=== PATIENT | male | born 2000 | race Caucasian/White ===

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

== ENCOUNTER → 2021-04-27 11:13 | Outpatient (BNVA) | payer BC, MEDICAID, SELFPAY | PROVIDERS: Visit Provider Nurse Practitioner Family | DX: E10.9 Type 1 diabetes mellitus without complications (principal); E55.9 Vitamin D deficiency, unspecified; E06.3 Autoimmune thyroiditis; J34.2 Deviated nasal septum | CPT/HCPCS: 80053; 80061; 82306; 83036; 84439; 84443; 85025 ==

== ENCOUNTER → 2021-07-28 11:17 | Outpatient (BNVA) | payer BC, MEDICAID, SELFPAY | PROVIDERS: Visit Provider Otolaryngology | DX: J34.2 Deviated nasal septum (principal); J34.3 Hypertrophy of nasal turbinates; Z20.822 Contact with and (suspected) exposure to COVID-19 | CPT/HCPCS: 87635 ==

== ENCOUNTER 2021-08-03 06:45 | Day surgery (SDC) | payer BC, MEDICAID, SELFPAY ==
[2021-08-02 12:49] VITALS: BMI 27.5
[2021-08-03] VITALS (14 sets, daily range): BP systolic 107–158; BP diastolic 71–104; PULSE 90–106; RESP 14–22; TEMP 36.4–37.3; O2SAT 91–100
[2021-08-03 07:24] LABS: Glucose Point of Care 212 mg/dL (70-110)
[2021-08-03] MEDS: sodium chloride 0.9% 1,000 ML 30 ML IV (07:36)
--- NOTE | 2021-08-03 07:51 | W.PM.OPSUD ---
Surgery/Procedure H&P Update DATE OF PROCEDURE: August 03, 2021 DATE H&P PERFORMED: 07/22/21 H&P UPDATE INFORMATION: I have reviewed H&P completed within last 30 days, I have examined patient prior to procedure and No changes to prior documentation PREOP DIAGNOSIS: Deviated nasal septum and turbinate hypertrophy PLANNED PROCEDURE: Operation Date: 08/03/21 08:10 Proposed Procedures p Septoplasty and turbinate reduction [id number] J34.2 J34.3(Not Applicable) - Caleb Love MD
[2021-08-03] MEDS: midazolam 1 mg/mL INJ 2 mL 2 MG IVP (08:06)
--- NOTE | 2021-08-03 08:09 | ANES.PREANE2 ---
Pre-Anesthetic Assessment Pre-Anesthetic Assessment: Height/Weight: Height 1.83 m Weight 92.079 kg Temp Pulse Resp BP Pulse Ox 99.2 F 99 22 H 132/71 100 08/03/21 07:10 08/03/21 07:10 08/03/21 07:10 08/03/21 07:10 08/03/21 07:10 Preop Diagnosis: Deviated nasal septum and turbinate hypertrophy Proposed Procedure: Operation Date: 08/03/21 08:10 Proposed Procedures p Septoplasty and turbinate reduction [id number] J34.2 J34.3(Not Applicable) - Caleb Love MD Was Beta Karen taken within 24 hours: N/A Was Clonidine taken within 24 hours: N/A Last intake: Intake Last Liquid Date 08/02/21 Last Liquid Time 20:00 Last Solid Date 08/02/21 Last Solid Time 20:00 Social: Social History: No alcohol and No tobacco Exam: Pre-Anes Outpt Exam: alert, oriented x 3, clear to auscultation bilaterally and regular rate & rhythm Airway: Submandibular: WNL Cervical ROM: WNL MP: 2 Dentition: Full Metabolic: Metabolic: DM and Thyroid Anesthetic Plan: ASA status: 2 Anesthesia: General Risk of > 500 ml blood loss (7ml/kg in children): No Meds/Allergies Current Medications: Current Medications Generic Name Dose Route Start Last Admin Trade Name Freq PRN Reason Stop Dose Admin Sodium Chloride 1,000 mls @ 30 ml s/hr 08/03/21 07:00 08/03/21 07:36 Sodium Chloride 0.9% IV 08/04/21 06:59 30 mls/hr .Q24H ASHLEY Administration Midazolam HCl 2 mg 08/03/21 06:51 08/03/21 08:06 Midazolam 1 Mg/M l Inj 2 Ml IVP 2 mg Q5M PRN Administration Preop Anxiety PFSH Anesthesia PFSH: Medical History Anxiety and depression Karla's thyroiditis Lumbar scoliosis Vitamin D deficiency Surgical History Hx of colonoscopy Hx of endoscopy Family History Denies family history of Anesthesia complication Bleeding disorder Social History Second hand smoke exposure: Yes (at work) Alcohol intake: never Caregiver/support person: Yes (mother) Lives independently: No Household members: family Marital status: Single Current occupational status: employed and student History of recent travel: No Current gender identity: Male Special meseret needs: No Data Anesthesia Other Labs: Laboratory Results - last 48 hr 08/03/21 07:20 POC Glucose 212 H Cardiac Studies: No Data to Display
[2021-08-03] MEDS: oxymetazoline 0.05% Nasal Spray 15 mL 2 SPRAY NOSTRIL-R (08:39)
[2021-08-03] MEDS: neomycin-poly-bacitracin oint 28 gm 1 APPLIC TOPICAL (09:12)
--- NOTE | 2021-08-03 09:23 | PM.OP ---
Operative Report Date of procedure: August 03, 2021 Pre-op Diagnosis: Deviated nasal septum and turbinate hypertrophy Post-op diagnosis: same Post-op Findings: Severely deviated nasal septum containing both maxillary crest and septal bone and septal cartilage to the left side. Turbinates 3+ and reduced to 2+ in size. Procedure Done: Septoplasty and submucous resection of bilateral inferior turbinates. Implants: 2 septal splints and 2 Telfa packs intranasally Pathology: none sent Surgeon: Caleb Love Anesthesia: General and Local Estimated blood loss (mL): 25 Complications: No complications encountered Findings: Severe deviation of septum to the left side impinging on lateral nasal wall and inferior turbinate and middle meatus. Compensatory turbinate hypertrophy. Condition: stable Disposition: PACU Brief History: 21-year-old male patient has a severely deviated nasal septum to the left side with compensatory turbinate hypertrophy which has been refractory to time and conservative medical therapy. He is therefore being brought to the operating room to undergo septoplasty and turbinate reduction. The procedure its risks and complications have been explained to the patient and his mother in the office setting. These risks included bleeding infection numbness scarring swelling bruising septal hematoma abscess or perforation change in sense of smell nasal dryness recurrent problems need for additional treatment and more serious risk such as heart attack or stroke or not surviving the surgery. With these things understood informed consent was granted and witnessed. Procedure: Description of procedure: The patient was placed on the operating table in the supine position. Adequate general endotracheal tube anesthesia was obtained. He was given Ancef IV for prophylaxis. He was repositioned into a semirecumbent position. Eyes were taped shut. A timeout was accomplished identifying the patient date of plan procedure allergies fire risk and medications given. With all in agreement the procedure continued. The patient's nose was packed with cottonoids soaked in 12-hour Afrin. After several minutes the nasal hairs were trimmed with scissors and the packing was removed first from the left side. At that point infiltration with local utilizing 2% Xylocaine with 1-100,000 epinephrine was injected into the septum and inferior turbinate. Then the Afrin packs were reapplied to the left side of the nose and a similar procedure was done on the right side. A total of 13.6 mL of 2% Xylocaine with 1-100,000 epinephrine was utilized. The patient was then prepped and draped in usual fashion. The Afrin packs were removed from the nose. The turbinates were outfractured with a [place] elevator. A left hemitransfixion incision was created with a 15 blade carrying it down to the level of septal cartilage. Then a Taina elevator was used to create a submucosal pocket anteriorly inferiorly superiorly and posteriorly. The quadrangular cartilage was off the crest to the left side. The cartilage deviation then extended to a bony deviation. The half round knife was used to excise the inferior most aspect that was difficult reflected superiorly to the left. This was done over the entire length of the quadrangular cartilage inferiorly. Approximately 3 mm of tissue was removed. Once that cartilage was removed the quadrangular cartilage was disarticulated from the perpendicular plate of the ethmoid and vomer. The posterior tunnel was then created on the right side. Then the large bony spur to the left was resected in a piecemeal fashion with Ophelia forceps. The maxillary crest that was severely widened and fractured off to the left was trimmed and then fractured back into a straight midline position with a [place] elevator. At this point the septum rested in a good straight midline position with no further deflection. The turbinates were then evaluated. The inferior turbinates were cauterized along their medial and lateral aspect removing about one third of each inferior turbinate. The incision was done with the needle tip Bovie and then the distal aspect of the turbinate along with more proximal turbinate bone was resected in a piecemeal fashion with Ophelia forceps. With this accomplished a [place] elevator was now able to be passed to the nasopharynx without obstruction. A drainage hole was created on the left side inferiorly to prevent hematoma formation. The left hemitransfixion incision was closed loosely with interrupted 4-0 chromic suture. 2 septal splints were coated with Neosporin and 1 was applied each side of the septum. These were then sutured in a through and through fashion with 3-0 Prolene. After checking for any active bleeding 2 Telfa packs were cut to size coated with Neosporin and 1 was applied each side of the nose extending from the nostril to the nasopharynx. This was done bilaterally and symmetrically. The nose was then cleansed. The mouth was suctioned clean. There was no sign of active bleeding. The drapes were removed and the patient was returned to the anesthesiologist for wake-up and extubation. The patient tolerated the procedure well had an estimated blood loss of 25 mL and arrived in recovery in stable condition.
--- NOTE | 2021-08-03 09:46 | PC.NURSE ---
Blood glucose checked at this time- blood sugar: 213.
[2021-08-03 09:51] LABS: Glucose Point of Care 213 mg/dL (70-110)
[2021-08-03] MEDS: fentaNYL 50 mcg/mL INJ 2mL IVP ×2 (09:57→10:03)
[2021-08-03] MEDS: ondansetron 2 mg/ML SDV 2 mL 4 MG IVP (11:06)
[2021-08-03] MEDS: cetylpyridinium Lozenge 1 EACH MUCOUS MEM (11:13)
--- NOTE | 2021-08-03 15:47 | ANE.PACU2 ---
Inpatient post-anesthesia follow up: Airway intact: Yes Vital signs: Temperature 98.3 F Pulse Rate 90 Respiratory Rate 16 Blood Pressure 158/88 Pulse Oximetry 94 Oxygen Delivery Me thod Room Air Oxygen Flow Rate 8 Fraction of Inspir ed Oxygen Hydration adequate: Yes Nausea and vomiting: No Pain level: 4 Mental status: Baseline
== END 2021-08-03 11:25 | disposition home or self-care (01) ==
PROVIDERS: PCP Nurse Practitioner Family; Visit Provider Otolaryngology
PROC: (CPT 30420; principal; 2021-08-03 08:05)
DX: J34.2 Deviated nasal septum (principal); J34.3 Hypertrophy of nasal turbinates; E11.9 Type 2 diabetes mellitus without complications; F41.9 Anxiety disorder, unspecified; F32.9 Major depressive disorder, single episode, unspecified; Z79.4 Long term (current) use of insulin; E55.9 Vitamin D deficiency, unspecified
CPT/HCPCS: 30140; 30520; 36416; 82962; 96365; 96374; J0690; J1100; J2250; J2405; J2704; J2710; J3010; J3490; J7030

== ENCOUNTER → 2022-01-17 11:12 | Outpatient (BNVA) | payer BC, MEDICAID, SELFPAY | PROVIDERS: PCP Nurse Practitioner Family; Visit Provider Nurse Practitioner Family | DX: E10.9 Type 1 diabetes mellitus without complications (principal); E55.9 Vitamin D deficiency, unspecified; E06.3 Autoimmune thyroiditis; R53.83 Other fatigue | CPT/HCPCS: 80053; 80061; 82043; 82306; 82607; 83036; 83735; 84403; 84439; 84443; 85025; 85651; 86038; 86140; 86200; 86431; 86705; 86706; 86709; 86803; 87340 ==

== ENCOUNTER → 2022-12-22 13:47 | Outpatient (BNVA) | payer BC, MEDICAID, SELFPAY | PROVIDERS: PCP Nurse Practitioner Family; Visit Provider Nurse Practitioner Family | DX: Z00.00 Encounter for general adult medical examination without abnormal findings (principal); R50.9 Fever, unspecified; E06.3 Autoimmune thyroiditis; E10.9 Type 1 diabetes mellitus without complications; E55.9 Vitamin D deficiency, unspecified; J40 Bronchitis, not specified as acute or chronic; Z13.6 Encounter for screening for cardiovascular disorders | CPT/HCPCS: 87400; 87426 ==

== ENCOUNTER → 2022-12-25 09:28 | Outpatient (BNVA) | payer BC, MEDICAID, SELFPAY | PROVIDERS: PCP Nurse Practitioner Family; Visit Provider Nurse Practitioner Family | DX: E06.3 Autoimmune thyroiditis (principal); Z13.6 Encounter for screening for cardiovascular disorders; E10.9 Type 1 diabetes mellitus without complications; E55.9 Vitamin D deficiency, unspecified | CPT/HCPCS: 80053; 80061; 82306; 83036; 84443; 85025 ==

== ENCOUNTER 2023-01-14 18:08 | Emergency (ER) | payer BC, MEDICAID, SELFPAY ==
[2023-01-14 18:18] VITALS: BP 112/77; PULSE 88; RESP 16; TEMP 37.2; O2SAT 100; BMI 23.4
[2023-01-14 19:12] LABS: Basophils % 0.6 %; Eosinophils # 0.3 10^3/uL (0.0-0.8); Eosinophils % 7.1 %; Hematocrit 39.6 % (42.0-52.0); Hemoglobin 13.9 g/dL (11.7-16.6); Lymphocytes # 1.3 10^3/uL (0.8-4.8); Lymphocytes % 27.1 %; Mean Corpuscular HGB Conc 35.1 g/dL (30.0-36.0); Mean Corpuscular Hemoglobin 31.6 pg (28.0-34.0); Mean Platelet Volume 11.9 fL (7.4-10.4); Monocytes # 0.3 10^3/uL (0.2-0.9); Monocytes % 5.6 %; Neutrophils # 2.74 10^3/uL (1.8-7.7); Neutrophils % 59.4 %; Nucleated Red Blood Cells % 0 %; Platelet Count 153 10^3/cmm (130-400); Red Cell Distribution Width 11.9 % (12.1-15.1); White Blood Count 4.6 10^3/uL (4.0-10.0)
[2023-01-14 19:24] VITALS: BP 134/75; PULSE 88; RESP 16; O2SAT 100
[2023-01-14 19:27] VITALS: BP 134/75; PULSE 89; RESP 19; O2SAT 100
[2023-01-14 19:30] LABS: Alanine Aminotransferase 17 U/L (0-41); Albumin Level 4.4 g/dL (3.5-5.2); Alkaline Phosphatase 68 U/L (40-130); Anion Gap 12.4 (5-19); Aspartate Amino Transferase 12 U/L (0-40); Blood Urea Nitrogen 7 mg/dL (6-20); Calcium 8.7 mg/dL (8.5-10.5); Carbon Dioxide 25 mmol/L (22-29); Chloride 102 mmol/L (98-107); Globulin 1.9 g/dL (1.3-4.6); Glomerular Filtration Rate 142.4 mL/min (90-130); Glucose 215 mg/dL (65-115); Lipase 10 U/L (13-60); Osmolality Calculated 286 mOsm/kg (285-295); Potassium 3.4 mmol/L (3.5-5.1); Sodium 136 mmol/L (136-145); Total Bilirubin 0.5 mg/dL (0.15-1.2); Total Protein 6.3 g/dL (6.6-8.7)
[2023-01-14 19:44] LABS: Glucose Point of Care 230 mg/dL (70-110)
--- NOTE | 2023-01-14 19:46 | CTR_ITS ---
PROCEDURE INFORMATION: Exam: CT Head Without Contrast Exam date and time: 01/14/2023 7:53 PM Age: 22 years old Clinical indication: Pain; Other: Disoriented; Headache; Patient HX: Type 1 diabetic TECHNIQUE: Imaging protocol: Computed tomography of the head without contrast. Radiation optimization: All CT scans at this facility use at least one of these dose optimization techniques: automated exposure control; mA and/or kV adjustment per patient size (includes targeted exams where dose is matched to clinical indication); or iterative reconstruction. REPORTING DATA: Count of CT and Cardiac NM exams in prior 12 months: This patient has received 0 known CTs and 0 known cardiac nuclear medicine studies in the 12 months prior to the current study. COMPARISON: No relevant prior studies available. RADIATION DOSE METRICS: Total DLP (mGy-cm): 1112.58 FINDINGS: Brain: There is no evidence of intracranial hemorrhage. No mass effect or midline shift. There is no brain edema. Unremarkable white matter. Cerebral ventricles: The ventricles and sulci are appropriate for the patient's age. Paranasal sinuses: There is opacification of a single left posterior ethmoid air cell. Mastoid air cells: The visualized mastoid air cells are well aerated. Bones/joints: No acute fracture. Soft tissues: Unremarkable. CT/CT head wo con* [id number] IMPRESSION: 1. No acute intracranial findings. 2. Paranasal sinus disease as above.
[2023-01-14 19:56] LABS: Ketone (Acetest) Serum Negative (Negative)
--- NOTE | 2023-01-14 19:56 | ED_ITS ---
HPI - Headache General: Chief Complaint: Headache Stated Complaint: headache Time Seen by Provider: 01/14/23 19:32 Source: patient History of Present Illness: 22-year-old male insulin-dependent diabetic. He was seen in urgent care earlier after 4 to 5 days of headache. He notes that his sugar has been a bit more hard to control the last 5 days. He says that his blood sugar was high prior to getting his headache, and wonders if his blood sugar being high may have caused something to happen in his head. He is nauseated. He has not vomited. He was given IM Toradol at urgent care without improvement. MD elicited complaint: headache Onset (ago): day(s) (3) Associated symptoms: Reports lightheadedness and nausea; Deny chest pain, confusion, cough, fever(s), neck stiffness, short of breath or vomiting Review of Systems Const: Denies: fever(s) Card: Reports: lightheadedness; Denies: chest pain Resp: Denies: dyspnea GI: Reports: nausea; Denies: abdominal pain or vomiting Neuro: Reports: headache(s); Denies: confusion PFSH ED PFSH: Medical History Anxiety and depression Karla's thyroiditis Lumbar scoliosis Vitamin D deficiency Surgical History Hx of colonoscopy Hx of endoscopy Family History Denies family history of Anesthesia complication Bleeding disorder Social History Smoking and tobacco status: never smoked Second hand smoke exposure: Yes (at work) Alcohol intake: never Caregiver/support person: Yes (mother) Lives independently: No Household members: family Marital status: Single Current occupational status: employed and student Current gender identity: Male Special meseret needs: No Physical Exam Const: COMMON NORMALS: no acute distress GENERAL APPEARANCE: cooperative; not ill appearing and not frail appearing HENMT: COMMON NORMALS: normocephalic, atraumatic and Normal external nose present HEAD & SCALP: normocephalic and atraumatic FACE & SINUS: normal facial exam and face symmetric NOSE: Normal external nose present Eye: COMMON NORMALS: Equal, round and reactive pupils present and EOMs intact bilaterally PUPIL: Yes Equal, round and reactive pupils present Neck/C-Spine: GENERAL: Yes trachea midline Chest: CHEST: Yes Symmetrical chest wall rise Resp: COMMON NORMALS: normal respiratory effort, No retractions, No use of accessory muscles and clear to auscultation bilaterally AUSCULTATION: clear to auscultation bilaterally Cardio: COMMON NORMALS: regular rate and regular rhythm RATE: regular rate RHYTHM: regular rhythm GI: COMMON NORMALS: Normal to inspection, nondistended, normoactive bowel sounds present Extremity: COMMON NORMALS: no pedal edema Neuro: PATRICIA COMA SCALE: document GCS findings Patricia coma scale eye opening: Spontaneous [place] coma scale verbal response: Orientated [place] coma scale motor response: Obey commands [place] coma scale total score: 15 SENSORY EXAM: Yes extremities (intact) Psych: COMMON NORMALS: speech normal SPEECH: Yes normal speech Skin: COMMON NORMALS: no rashes or lesions noted GENERAL SKIN EXAM: no rashes or lesions noted Course Vital Signs: Vital signs: Vital Signs Temperature 99.0 F 01/14/23 18:18 Pulse Rate 87 01/14/23 20:35 Respiratory Rate 14 01/14/23 21:47 Blood Pressure 131/80 01/14/23 20:35 Pulse Oximetry 98 01/14/23 21:47 Oxygen Delivery Me thod 01/14/23 20:35 MDM - Headache Medical Decision Making Vital signs are normal. Headache is improved. He is given 2 L bolus. Sugar on CMP testing is 215. His CBC is normal. Potassium is 3.4. Serum ketones are negative. Lipase is normal. Head CT shows some mild para sinus disease. He will be allowed discharge. Lab Data 01/14/23 19:03 01/14/23 19:[address] 01/14/23 19:46 IMPRESSION: 1. No acute intracranial findings. 2. Paranasal sinus disease as above. Laboratory Results WBC 4.6 10^3/uL (4.0-10.0) 01/14/23 19:03 RBC 4.40 10^6/uL (4.1-5.3) 01/14/23 19:03 Hgb 13.9 g/dL (11.7-16.6) 01/14/23 19:03 Hct 39.6 % (42.0-52.0) L 01/14/23 19:03 MCV 90.0 fl (80-94) 01/14/23 19:03 MCH 31.6 pg (28.0-34.0) 01/14/23 19:03 MCHC 35.1 g/dL (30.0-36.0) 01/14/23 19:03 RDW 11.9 % (12.1-15.1) L 01/14/23 19:03 Plt Count 153 10^3/cmm (130-400) 01/14/23 19:03 MPV 11.9 fL (7.4-10.4) H 01/14/23 19:03 Neut % (Auto) 59.4 % 01/14/23 19:03 Lymph % (Auto) 27.1 % 01/14/23 19:03 [place] % (Auto) 5.6 % 01/14/23 19:03 Eos % (Auto) 7.1 % 01/14/23 19:03 Baso % (Auto) 0.6 % 01/14/23 19:03 Neut # (Auto) 2.74 10^3/uL (1.8-7.7) 01/14/23 19:03 Lymph # (Auto) 1.3 10^3/uL (0.8-4.8) 01/14/23 19:03 [place] # (Auto) 0.3 10^3/uL (0.2-0.9) 01/14/23 19:03 Eos # (Auto) 0.3 10^3/uL (0.0-0.8) 01/14/23 19:03 Baso # (Auto) 0.0 10^3/uL (0.0-0.1) 01/14/23 19:03 Nucleated RBC % (auto) 0 % 01/14/23 19:03 Nucleated RBCs # 0.0 /100WBC 01/14/23 19:03 Sodium 136 mmol/L (136-145) 01/14/23 19:03 Potassium 3.4 mmol/L (3.5-5.1) L 01/14/23 19:03 Chloride 102 mmol/L (98-107) 01/14/23 19:03 Carbon Dioxide 25 mmol/L (22-29) 01/14/23 19:03 Anion Gap 12.4 (5-19) 01/14/23 19:03 BUN 7 mg/dL (6-20) 01/14/23 19:03 Creatinine 0.7 mg/dL (0.7-1.2) 01/14/23 19:03 GFR Calculation 142.4 mL/min (90-130) H 01/14/23 19:03 Glucose 215 mg/dL (65-115) H 01/14/23 19:03 POC Glucose 174 mg/dL (70-110) H 01/14/23 21:02 Calculated Osmolality 286 mOsm/kg (285-295) 01/14/23 19:03 Calcium 8.7 mg/dL (8.5-10.5) 01/14/23 19:03 Total Bilirubin 0.5 mg/dL (0.15-1.2) 01/14/23 19:03 AST 12 U/L (0-40) 01/14/23 19:03 ALT 17 U/L (0-41) 01/14/23 19:03 Alkaline Phosphatase 68 U/L (40-130) 01/14/23 19:03 Total Protein 6.3 g/dL (6.6-8.7) L 01/14/23 19:03 Albumin 4.4 g/dL (3.5-5.2) 01/14/23 19:03 Globulin 1.9 g/dL (1.3-4.6) 01/14/23 19:03 Lipase 10 U/L (13-60) L 01/14/23 19:03 Urine Color Yellow (Yellow) 01/14/23 20:55 Urine Appearance Clear (CLEAR) 01/14/23 20:55 Urine pH 7 (5-7) 01/14/23 20:55 Ur Specific [place] 1.010 (1.005-1.030) 01/14/23 20:55 Urine Protein Neg (Negative) 01/14/23 20:55 Urine Glucose (UA) 2+ (Normal) H 01/14/23 20:55 Urine Ketones 1+ (Negative) H 01/14/23 20:55 Urine Blood Neg (Negative) 01/14/23 20:55 Urine Nitrate Negative (Negative) 01/14/23 20:55 Urine Bilirubin Neg (Negative) 01/14/23 20:55 Urine Urobilinogen Norm mg/dL (Negative) 01/14/23 20:55 Ur Leukocyte Esterase Negative (Negative) 01/14/23 20:55 Serum Ketones Negative (Negative) 01/14/23 19:03 Discharge Plan Discharge Patient Disposition: Home Clinical Impression: Headache, Type 1 diabetes mellitus Condition: Stable Prescriptions: No Action cholecalciferol (vitamin D3) 2,000 unit tablet 2,000 unit PO DAILY multivitamin [Daily Multi-Vitamin] Tablet 1 tab PO DAILY (DME) blood sugar diagnostic Strip See Rx Instructions .ROUTE .MEDSUPPLY Qty: 100 11RF Rx Instructions: As directed up to 10x daily Glucagon Emergency Kit (human) 1 mg recon soln See Rx Instructions .ROUTE .COMPLEX Qty: 1 5RF Dose Instruction: INJECT 1MG (0.2ML) SUBCUTANEOUSLY EVERY 20 MINUTES NEEDED FOR HYPOGLYCEMIA Rx Instructions: INJECT 1MG (0.2ML) SUBCUTANEOUSLY EVERY 20 MINUTES NEEDED FOR HYPOGLYCEMIA (DME) lancets [OneTouch Delica Lancets] 33 gauge misc See Rx Instructions .ROUTE .MEDSUPPLY Qty: 300 12RF Rx Instructions: As directed up to 10 x daily levothyroxine 100 mcg tablet See Rx Instructions .ROUTE .COMPLEX Qty: 30 0RF Dose Instruction: TAKE 1 TABLET BY MOUTH ONCE DAILY *DUE FOR LABS* Rx Instructions: TAKE 1 TABLET BY MOUTH ONCE DAILY doxycycline hyclate 100 mg capsule 100 mg PO BID 10 Days Qty: 20 0RF prednisone 20 mg tablet 20 mg PO BID 5 Days Qty: 10 0RF (DME) Blood Glucose Test Strip See Rx Instructions .ROUTE .MEDSUPPLY Qty: 300 12RF Rx Instructions: check blood sugar up to 9 times daily (DME) pen needle, diabetic [Comfort EZ Pen [place]] 32 gauge x 1/4 needle See Rx Instructions .ROUTE .MEDSUPPLY Qty: 300 11RF Rx Instructions: Pt to test ac, hs and prn hypoglycemia insulin aspart U-100 [Novolog FlexPen U-100 Insulin] 100 unit/mL (3 mL) insu kayla pen See Rx Instructions .ROUTE .COMPLEX Qty: 15 0RF Dose Instruction: USE DIRECTED PER SLIDING SCALE DO NOT EXCEED DAILY DOSE OF 86 UNITS PER DAY Rx Instructions: USE DIRECTED PER SLIDING SCALE DO NOT EXCEED DAILY DOSE OF 86 UNITS PER DAY Lantus Solostar U-100 Insulin 100 unit/mL (3 mL) insulin pen See Rx Instructions .ROUTE .COMPLEX Qty: 15 0RF Dose Instruction: INJECT 20 UNITS SUBCUTANEOUSLY TWICE DAILY Rx Instructions: INJECT 20 UNITS SUBCUTANEOUSLY TWICE DAILY Discharge Orders: Discharge ED (Routine); Ordered 01/14/23 Ordered By: Kevin Guzman Referrals: Mary Hernandez FNP [Primary Care Provider] - Patient Instructions: Acute Headache (ED), Opioid Safety, Pain Management Activity Restrictions/Additional Instructions: Push oral hydration. Watch your sugar closely and treat accordingly. Return for worsening headache with speech problems, vision problems, weakness, other concerning symptoms. Because of the sinus congestion, you may try an [id number] decongestant. Coding Level of Care Code ED Group Worker for Honorio Lyons
[2023-01-14] MEDS: sodium chloride 0.9% 1,000 ML 999 ML IV ×2 (20:01→21:10)
[2023-01-14] MEDS: ondansetron 2 mg/ML SDV 2 mL 4 MG IVP (20:02)
[2023-01-14 20:03] VITALS: RESP 16; O2SAT 100
[2023-01-14] MEDS: morphine 4 mg/mL SDV 1 mL IVP ×2 (20:03→21:47)
[2023-01-14 20:35] VITALS: BP 131/80; PULSE 87; RESP 16; O2SAT 100
[2023-01-14 21:06] LABS: Glucose Point of Care 174 mg/dL (70-110)
[2023-01-14 21:08] LABS: Add Urine Microscopic? NO; Charge for UA Resulting for Rev
[2023-01-14 21:30] LABS: Urine Appearance Clear (CLEAR); Urine Color Yellow (Yellow); pH Urine 7 (5-7)
[2023-01-14 21:31] LABS: Glucose Urine UA 2+ (Normal); Protein Urine Neg (Negative)
[2023-01-14 21:32] LABS: Bilirubin Urine Neg (Negative); Blood Urine Neg (Negative); Ketones Urine 1+ (Negative); Leukocyte Esterase Urine Negative (Negative); Nitrate Urine Negative (Negative); Urobilinogen Urine Norm (Negative)
[2023-01-14 21:47] VITALS: RESP 14; O2SAT 98
[2023-01-14] MEDS: metoclopramide 5 mg/mL SDV 2 mL 10 MG IVP (21:50)
== END 2023-01-14 22:20 | disposition home or self-care (01) ==
PROVIDERS: Nurse Practitioner Family; Emergency Provider Emergency Medicine; PCP Nurse Practitioner Family
DX: R51.9 Headache, unspecified (principal); E10.9 Type 1 diabetes mellitus without complications; Z79.4 Long term (current) use of insulin
CPT/HCPCS: 36415; 36416; 70450; 80053; 81000; 81003; 82009; 82962; 83690; 85025; 96361; 96374; 96375; 96376; 99285; J2270; J2405; J2765; J7030

== ENCOUNTER → 2023-11-21 15:30 | Outpatient (BNVA) | payer BC, MEDICAID, SELFPAY | PROVIDERS: PCP Nurse Practitioner Family; Visit Provider Nurse Practitioner Family | DX: E06.3 Autoimmune thyroiditis (principal); E10.9 Type 1 diabetes mellitus without complications; E55.9 Vitamin D deficiency, unspecified; Z79.899 Other long term (current) drug therapy | CPT/HCPCS: 80053; 80061; 82043; 82306; 83036; 84439; 84443; 85025 ==

== ENCOUNTER → 2024-09-18 08:39 | Outpatient (BNVA) | payer BC, MEDICAID, SELFPAY | PROVIDERS: PCP Nurse Practitioner Family; Visit Provider Nurse Practitioner Family | DX: E55.9 Vitamin D deficiency, unspecified (principal); E10.9 Type 1 diabetes mellitus without complications | CPT/HCPCS: 80053; 80061; 82306; 83036; 84443; 85025 ==

== ENCOUNTER 2024-09-26 21:37 | Emergency (ER) | payer BC, MEDICAID, SELFPAY ==
[2024-09-26] VITALS (9 sets, daily range): BP systolic 106–134; BP diastolic 62–72; PULSE 78–96; RESP 14–20; TEMP 36.8; O2SAT 99–100; BMI 20.7
[2024-09-26 21:46] LABS: Glucose Point of Care 161 mg/dL (70-110)
[2024-09-26 22:47] LABS: Basophils % 0.6 %; Eosinophils # 0.3 10^3/uL (0.0-0.8); Eosinophils % 7.7 %; Hematocrit 40.5 % (37-53); Lymphocytes # 1.2 10^3/uL (0.8-4.8); Lymphocytes % 35.9 %; Mean Corpuscular HGB Conc 35.1 g/dL (30-55); Mean Corpuscular Hemoglobin 32.5 pg (27-33); Mean Corpuscular Volume 92.7 fl (82-101); Mean Platelet Volume 11.8 fL (7.4-10.4); Monocytes # 0.2 10^3/uL (0.2-0.9); Monocytes % 5.3 %; Neutrophils # 1.69 10^3/uL (1.8-7.7); Neutrophils % 50.2 %; Nucleated Red Blood Cells % 0 %; Platelet Count 155 10^3/cmm (157-399); Red Blood Count 4.37 10^6/uL (3.85-5.65); Red Cell Distribution Width 11.8 % (12.1-15.1); White Blood Count 3.37 10^3/uL (3.29-11.43)
--- NOTE | 2024-09-26 23:24 | W.ED.GENADLT ---
HPI - General Adult General: Chief complaint: General Medical Stated complaint: blood sugar is low; wont stay elevated Time Seen by Provider: 09/26/24 22:20 History of Present Illness: Patient presents to the ER with complaints of his blood sugar dropping and and not being able to raise it even though he is been drinking more juice and eating fruit snacks. Patient is an insulin-dependent diabetic. Patient says every once now he has this blood sugar does this for unknown reasons. Related Data Home Medications Medication Instructions Recorded Confirmed cholecalciferol (vitamin D3) 50 2,000 unit PO DAILY 01/01/20 09/18/24 mcg (2,000 unit) tablet multivitamin (Daily Multi-Vitamin 1 tab PO DAILY 01/01/20 09/18/24 tablet) Previous Rx's Medication Instructions Recorded blood sugar diagnostic #100 ea 09/14/20 lancets 33 gauge (OneTouch Delica #300 ea 03/21/23 Lancets) pen needle, diabetic 32 gauge x #300 ea 11/21/23 (TechLITE Pen Needle) glucagon 1 mg/0.2 mL subcutaneous 1 mg (0.2 mL) SUBCUT ONCE PRN 12/10/23 auto-injector (Gvoke HypoPen hypoglycemia #0.4 mL 2-Pack) blood sugar diagnostic (OneTouch #400 ea 03/12/24 Ultra Test strips) Lantus Solostar U-100 Insulin 100 See Rx Instructions .Route 09/18/24 unit/mL (3 mL) subcutaneous pen .COMPLEX #15 mL (insulin glargine) insulin aspart U-100 100 unit/mL See Rx Instructions .Route 09/18/24 (3 mL) subcutaneous pen (Novolog .COMPLEX #15 mL FlexPen U-100 Insulin aspart) levothyroxine 112 mcg tablet 112 mcg PO DAILY #90 tabs 09/26/24 Allergies Allergy/AdvReac Type Severity Reaction Status Date / Time No Known Allergies Allergy Verified 09/26/24 21:50 Review of Systems General: Reports: 10 or more systems reviewed and unremarkable except in HPI and below PFSH ED PFSH: Medical History Anxiety and depression Lumbar scoliosis Karla's thyroiditis Vitamin D deficiency Surgical History Hx of colonoscopy Hx of endoscopy Family History Denies family history of Anesthesia complication Bleeding disorder Social History Smoking and tobacco/nicotine status: never used tobacco/nicotine Second hand smoke exposure: Yes (at work) Alcohol intake: never Substance/Drug Use: never Caregiver/support person: Yes (mother) Lives independently: No Household members: family Marital status: Single Current occupational status: employed and student Current gender identity: Male Special meseret needs: No Physical Exam Const: COMMON NORMALS: no acute distress, average body habitus, patient oriented x3, no limitations, healthy appearing, alert and well nourished HENMT: COMMON NORMALS: normocephalic, atraumatic, hearing grossly normal bilaterally, external ears normal, Normal external nose present and moist oral mucous membranes HEAD & SCALP: normocephalic and atraumatic NOSE: Normal external nose present EXTERNAL EAR: Yes external ears normal Neck/C-Spine: COMMON NORMALS: no JVD Chest: COMMONS NORMALS: normal inspection of the chest and normal palpation of entire chest wall Resp: COMMON NORMALS: normal respiratory effort, No retractions, No use of accessory muscles and clear to auscultation bilaterally AUSCULTATION: clear to auscultation bilaterally Cardio: COMMON NORMALS: no JVD, regular rate, regular rhythm, S1 normal heart sound present, S2 normal heart sound present, No gallops present (Cardio), No clicks present (Cardio), No murmurs present (Cardio) and No rub (Cardio) RATE: regular rate RHYTHM: regular rhythm HEART SOUNDS: S1 normal heart sound present and S2 normal heart sound present GI: COMMON NORMALS: Normal to inspection, nondistended, normoactive bowel sounds present, Soft to palpation, non-tender and No hepatosplenomegaly present PALPATION: Yes Soft to palpation and Yes No hepatosplenomegaly present Neuro: COMMON NORMALS: patient oriented x3 SENSORIUM/ORIENTATION: Yes alert Course Vital Signs: Vital signs: Vital Signs Temperature 98.2 F 09/26/24 21:44 Pulse Rate 93 09/26/24 23:30 Respiratory Rate 15 09/26/24 23:30 Blood Pressure 120/62 09/26/24 23:15 Pulse Oximetry 99 09/26/24 23:30 Oxygen Delivery Me thod Room Air 09/26/24 21:44 MDM - General Adult Medical Decision Making Number was obtained which revealed initial blood sugar fingerstick of 160, blood draw showed 247, third fingerstick revealed 272, patient be discharged home. Medical Records I reviewed the patient's medical records. Lab Data I reviewed the patient's lab results. 09/26/24 22:42 09/26/24 22:42 Laboratory Results WBC 3.37 10^3/uL (3.29-11.43) 09/26/24 22:42 RBC 4.37 10^6/uL (3.85-5.65) 09/26/24 22:42 Hgb 14.20 g/dL (11.27-16.99) 09/26/24 22:42 Hct 40.5 % (37-53) 09/26/24 22:42 MCV 92.7 fl (82-101) 09/26/24 22:42 MCH 32.5 pg (27-33) 09/26/24 22:42 MCHC 35.1 g/dL (30-55) 09/26/24 22:42 RDW 11.8 % (12.1-15.1) L 09/26/24 22:42 Plt Count 155 10^3/cmm (157-399) L 09/26/24 22:42 MPV 11.8 fL (7.4-10.4) H 09/26/24 22:42 Neut % (Auto) 50.2 % 09/26/24 22:42 Lymph % (Auto) 35.9 % 09/26/24 22:42 [place] % (Auto) 5.3 % 09/26/24 22:42 Eos % (Auto) 7.7 % 09/26/24 22:42 Baso % (Auto) 0.6 % 09/26/24 22:42 Neut # (Auto) 1.69 10^3/uL (1.8-7.7) L 09/26/24 22:42 Lymph # (Auto) 1.2 10^3/uL (0.8-4.8) 09/26/24 22:42 [place] # (Auto) 0.2 10^3/uL (0.2-0.9) 09/26/24 22:42 Eos # (Auto) 0.3 10^3/uL (0.0-0.8) 09/26/24 22:42 Baso # (Auto) 0.0 10^3/uL (0.0-0.1) 09/26/24 22:42 Nucleated RBC % (auto) 0 % 09/26/24 22:42 Nucleated RBCs # 0.0 /100WBC 09/26/24 22:42 Sodium 137 mmol/L (136-145) 09/26/24 22:42 Potassium 4.7 mmol/L (3.5-5.1) 09/26/24 22:42 Chloride 101 mmol/L (98-107) 09/26/24 22:42 Carbon Dioxide 28 mmol/L (22-29) 09/26/24 22:42 Anion Gap 12.7 (5-19) 09/26/24 22:42 BUN 8 mg/dL (6-20) 09/26/24 22:42 Creatinine 0.7 mg/dL (0.7-1.2) 09/26/24 22:42 GFR Calculation 139.8 mL/min (90-130) H 09/26/24 22:42 Glucose 247 mg/dL (65-115) H 09/26/24 22:42 POC Glucose 161 mg/dL (70-110) H 09/26/24 21:43 Calculated Osmolality 291 mOsm/kg (285-295) 09/26/24 22:42 Calcium 9.0 mg/dL (8.5-10.5) 09/26/24 22:42 Total Bilirubin 0.4 mg/dL (0.15-1.2) 09/26/24 22:42 AST 16 U/L (0-40) 09/26/24 22:42 ALT 27 U/L (0-41) 09/26/24 22:42 Alkaline Phosphatase 76 U/L (40-130) 09/26/24 22:42 Total Protein 6.1 g/dL (6.6-8.7) L 09/26/24 22:42 Albumin 4.3 g/dL (3.5-5.2) 09/26/24 22:42 Globulin 1.8 g/dL (1.3-4.6) 09/26/24 22:42 TSH 1.87 uIU/mL (0.27-4.20) 09/26/24 22:42 All radiology interpretation(s) finalized by discharge Discharge Plan Discharge Patient Disposition: Home Clinical Impression: Type 1 diabetes mellitus Qualifiers: Diabetes mellitus complication status: without complication Qualified Code(s): E10.9 - Type 1 diabetes mellitus without complications Condition: Stable Prescriptions: No Action cholecalciferol (vitamin D3) 2,000 unit tablet 2,000 unit PO DAILY multivitamin [Daily Multi-Vitamin] Tablet 1 tab PO DAILY (DME) blood sugar diagnostic Strip See Rx Instructions .ROUTE .MEDSUPPLY Qty: 100 11RF Rx Instructions: As directed up to 10x daily (DME) pen needle, diabetic [TechLITE Pen Needle] 32 gauge x needle See Rx Instructions .ROUTE .COMPLEX Qty: 300 12RF Dose Instruction: USE 1 BEFORE MEAL(S) AND AT BEDTIME AND NEEDED FOR HYPOGLCEMIA Rx Instructions: USE 1 BEFORE MEAL(S) AND AT BEDTIME AND NEEDED FOR HYPOGLCEMIA Lantus Solostar U-100 Insulin 100 unit/mL (3 mL) insulin pen See Rx Instructions .ROUTE .COMPLEX Qty: 15 5RF Dose Instruction: INJECT 22 UNITS SUBCUTANEOUSLY TWICE DAILY Rx Instructions: INJECT 20 UNITS SUBCUTANEOUSLY TWICE DAILY insulin aspart U-100 [Novolog FlexPen U-100 Insulin] 100 unit/mL (3 mL) insulin pen See Rx Instructions .ROUTE .COMPLEX Qty: 15 5RF Dose Instruction: USE DIRECTED PER SLIDING SCALE. DO NOT EXCEED DAILY DOSE OF 86 UNITS PER DAY Rx Instructions: USE DIRECTED PER SLIDING SCALE. DO NOT EXCEED DAILY DOSE OF 86 UNITS PER DAY (DME) lancets [OneTouch Delica Lancets] 33 gauge misc See Rx Instructions .ROUTE .COMPLEX Qty: 300 0RF Dose Instruction: USE DIRECTED TO CHECK BLOOD SUGAR UP TO 10 TIMES DAILY Rx Instructions: USE DIRECTED TO CHECK BLOOD SUGAR UP TO 10 TIMES DAILY Gvoke HypoPen 2-Pack 1 mg/0.2 mL auto-injector 1 mg SUBCUT ONCE PRN (Reason: hypoglycemia) Qty: 0.4 2RF (DME) OneTouch Ultra Test Strip See Rx Instructions .ROUTE .COMPLEX Qty: 400 5RF Dose Instruction: USE DIRECTED TO CHECK BLOOD SUGAR UP TO 9 TIMES DAILY Rx Instructions: USE DIRECTED TO CHECK BLOOD SUGAR UP TO 9 TIMES DAILY levothyroxine 112 mcg tablet 112 mcg PO DAILY Qty: 90 0RF Discharge Orders: Discharge ED (Routine); Ordered 09/27/24 Ordered By: Claudio Paz Referrals: Mary Hernandez FNP [Primary Care Provider] - 1 week Patient Instructions: Diabetes Type 1: Management (ED) Activity Restrictions/Additional Instructions: Thank you for choosing [facility] [place] for your healthcare needs today. Please realize that you were seen in the emergency department and that we are providing you with an emergency medical screening exam and this may not be a complete and all exclusive of all testing and/or medical workup we may need to determine your element or severity of your illness. It is very important that you follow-up as instructed with your primary care provider or specialist for the additional evaluation and to discuss your medical treatment plan. You may return to the emergency department should you have concerns or if your condition changes or worsens in any way. Coding Level of Care Code ED Ring Conductor for Honorio Lyons
[2024-09-26 23:26] LABS: Alanine Aminotransferase 27 U/L (0-41); Albumin Level 4.3 g/dL (3.5-5.2); Alkaline Phosphatase 76 U/L (40-130); Anion Gap 12.7 (5-19); Aspartate Amino Transferase 16 U/L (0-40); Blood Urea Nitrogen 8 mg/dL (6-20); Carbon Dioxide 28 mmol/L (22-29); Chloride 101 mmol/L (98-107); Creatinine Clr Calc Pharmacy 172.5286; Globulin 1.8 g/dL (1.3-4.6); Glomerular Filtration Rate 139.8 mL/min (90-130); Glucose 247 mg/dL (65-115); Osmolality Calculated 291 mOsm/kg (285-295); Potassium 4.7 mmol/L (3.5-5.1); Sodium 137 mmol/L (136-145); Thyroid Stimulating Hormone 1.87 uIU/mL (0.27-4.20); Total Bilirubin 0.4 mg/dL (0.15-1.2); Total Protein 6.1 g/dL (6.6-8.7)
[2024-09-27] VITALS: BP 129/66; PULSE 86; RESP 17; O2SAT 97
[2024-09-27] LABS: Glucose Point of Care 272 mg/dL (70-110)
[2024-09-27 00:02] VITALS: BP 129/66; PULSE 90; RESP 16; O2SAT 99
--- NOTE | 2024-09-27 00:17 | PC.NURSE ---
0000: Patient's blood glucose [address] Paz notified with orders received to discharge patient.
--- NOTE | 2024-09-27 00:20 | PC.NURSE ---
0000: No urine sample required. Discharge patient per Dr. Paz.
== END 2024-09-27 00:04 | disposition home or self-care (01) ==
PROVIDERS: Emergency Provider Emergency Medicine; PCP Nurse Practitioner Family
DX: E10.9 Type 1 diabetes mellitus without complications (principal); Z79.4 Long term (current) use of insulin
CPT/HCPCS: 36415; 36416; 80053; 82962; 84443; 85025; 99283

== ENCOUNTER → 2025-01-29 14:02 | Outpatient (BNVA) | payer BC, MEDICAID, SELFPAY | PROVIDERS: PCP Nurse Practitioner Family; Visit Provider Nurse Practitioner Family | DX: S62.396A Other fracture of fifth metacarpal bone, right hand, initial encounter for closed fracture (principal); X58.XXXA Exposure to other specified factors, initial encounter | CPT/HCPCS: 73130 ==

== ENCOUNTER → 2025-02-03 14:33 | Outpatient (BNVA) | payer BC, MEDICAID, SELFPAY | PROVIDERS: PCP Nurse Practitioner Family; Visit Provider Orthopaedic Surgery | DX: Z01.818 Encounter for other preprocedural examination (principal); S69.91XA Unspecified injury of right wrist, hand and finger(s), initial encounter; X58.XXXA Exposure to other specified factors, initial encounter | CPT/HCPCS: 36415; 73130; 80053; 81001; 83036; 85025 ==

== ENCOUNTER 2025-02-03 15:51 | Outpatient (CLI) | payer BC, MEDICAID, SELFPAY | END 2025-02-03 15:52 | disposition home or self-care (01) | LOC: SPT 15:52 | PROVIDERS: PCP Nurse Practitioner Family; Visit Provider Orthopaedic Surgery | DX: Z46.89 Encounter for fitting and adjustment of other specified devices (principal); S62.336D Displaced fracture of neck of fifth metacarpal bone, right hand, subsequent encounter for fracture with routine healing; X58.XXXD Exposure to other specified factors, subsequent encounter | CPT/HCPCS: L3807 ==

== ENCOUNTER 2025-02-09 08:08 | Day surgery (SDC) | payer BC, MEDICAID, SELFPAY ==
[2025-02-09] VITALS (11 sets, daily range): BP systolic 88–168; BP diastolic 44–80; PULSE 68–83; RESP 14–20; TEMP 36.1–36.6; O2SAT 100; BMI 20.3
[2025-02-09 09:22] LABS: Glucose Point of Care 149 mg/dL (70-110)
--- NOTE | 2025-02-09 10:21 | ANES.PREANE2 ---
Pre-Anesthetic Assessment Height/Weight: Height 1.83 m Weight 68.039 kg Temp Pulse Resp BP Pulse Ox O2 Del Method 97.6 F 83 18 127/80 100 Room Air 02/09/25 08:32 02/09/25 08:32 02/09/25 08:32 02/09/25 08:32 02/09/25 08:32 02/09/25 08:34 Preop Diagnosis: Right fifth metacarpal fracture Operation Date: 02/09/25 09:30 Proposed Procedures p Percutaneous skeletal fixation of metacarpal fracture(Right) - Conrado Gilman DO Familial anesthetic complications: None Was Beta Karen taken within 24 hours: N/A Was Clonidine taken within 24 hours: N/A Last intake: Intake Last Liquid Date 02/08/25 Last Liquid Time 21:30 Last Solid Date 02/08/25 Last Solid Time 21:30 Social No alcohol and No tobacco Exam alert, oriented x 3, clear to auscultation bilaterally and regular rate & rhythm Airway Mallampati: Class I Dentition: full Metabolic Diabetes Mellitus and Thyroid Disease Anesthetic Plan ASA status: 3 Anesthesia: MAC Risk of > 500 ml blood loss (7ml/kg in children): No Medications/Allergies Home Medications ?Medication ?Instructions ?Recorded ?Confirmed ?Last Taken ?Type cholecalciferol (vitamin D3) 50 2,000 unit PO DAILY 01/01/20 02/05/25 02/05/25 History mcg (2,000 unit) tablet multivitamin (Daily Multi-Vitamin 1 tab PO DAILY 01/01/20 02/05/25 02/05/25 History tablet) blood sugar diagnostic #100 ea 09/14/20 02/03/25 08/02/21 Rx lancets 33 gauge (OneTouch Delica #300 ea 03/21/23 02/03/25 Unknown Rx Lancets) pen needle, diabetic 32 gauge x #300 ea 11/21/23 02/03/25 Unknown Rx 5/32 (TechLITE Pen Needle) glucagon 1 mg/0.2 mL subcutaneous 1 mg (0.2 mL) SUBCUT ONCE PRN 12/10/23 02/05/25 Unknown Rx auto-injector (Gvoke HypoPen hypoglycemia #0.4 mL 2-Pack) blood sugar diagnostic (OneTouch #400 ea 03/12/24 02/03/25 Unknown Rx Ultra Test strips) TKO brace #1 ea 02/03/25 02/03/25 Unknown Rx insulin aspart U-100 100 unit/mL 100 unit SUBCUT DIRECTED 02/05/25 02/05/25 02/05/25 History (3 mL) subcutaneous pen (Novolog FlexPen U-100 Insulin aspart) insulin glargine 100 unit/mL (3 20 unit SUBCUT DIRECTED 02/05/25 02/05/25 02/05/25 History mL) subcutaneous pen (Lantus Solostar U-100 Insulin) levothyroxine 112 mcg tablet 112 mcg PO DAILY 02/05/25 02/05/25 02/05/25 History Allergies Allergy/AdvReac Type Severity Reaction Status Date / Time ibuprofen Allergy ALGY-Joint Verified 02/05/25 12:51 Pain PFSH Anesthesia Medical History Anxiety and depression Lumbar scoliosis Karla's thyroiditis Vitamin D deficiency Surgical History Hx of colonoscopy Hx of endoscopy Family History Denies family history of Anesthesia complication Bleeding disorder Social History Smoking and tobacco/nicotine status: never used tobacco/nicotine Second hand smoke exposure: Yes (at work) Alcohol intake: never Substance/Drug Use: never Caregiver/support person: Yes (mother) Lives independently: No Household members: family Marital status: Single Current occupational status: employed and student Current gender identity: Male Special meseret needs: No Data Anesthesia Cardiac Studies: No Data to Display
[2025-02-09] MEDS: ceFAZolin 2,000 mg SDV 2000 MG IVP (10:56)
--- NOTE | 2025-02-09 11:53 | PM.OP ---
Operative Report Date of procedure: February 09, 2025 Pre-op diagnosis: Fifth metacarpal neck fracture on the right Post-op diagnosis: same Procedure done: Close reduction percutaneous pinning of fifth metacarpal neck fracture on the right Surgeon: Conrado Gilman DO Estimated blood loss (mL): 5 Procedure: Close reduction percutaneous pinning of fifth metacarpal neck fracture on the right Patient with the procedure after an [place] patient was put in the supine position. All his impingement well-padded patient's prepped and draped in sterile fashion. Fracture was reduced and then once the fracture was reduced 2 pins were placed from the head of the metacarpal down into the shaft. AP lateral and showed the pins and hardware in good position. Wounds irrigated pins were cut and bent Jurgan balls were placed on it a ulnar gutter splint was placed and patient was transferred to the PACU in stable condition.
[2025-02-09 12:09] LABS: Glucose Point of Care 133 mg/dL (70-110)
[2025-02-09 12:24] LABS: Glucose Point of Care 136 mg/dL (70-110)
[2025-02-09] MEDS: HYDROcodone-acetaminophen 5-325 mg Tablet 1 TAB PO (13:03)
--- NOTE | 2025-02-09 13:25 | ANE.PACU2 ---
Inpatient post-anesthesia follow up: Airway intact: Yes Vital signs: Temperature 97.8 F Pulse Rate 72 Respiratory Rate 17 Blood Pressure 168/77 Pulse Oximetry 100 Oxygen Delivery Me thod Room Air Oxygen Flow Rate 8 Fraction of Inspir ed Oxygen Hydration adequate: Yes Nausea and vomiting: No Pain level: 1 Mental status: Baseline
[2025-02-09] MEDS: sodium chloride 0.9% 1,000 ML 30 ML IV (13:26)
== END 2025-02-09 13:25 | disposition home or self-care (01) ==
PROVIDERS: PCP Nurse Practitioner Family; Visit Provider Orthopaedic Surgery
PROC: (CPT 26432; principal; 2025-02-09 09:20)
DX: S62.336A Displaced fracture of neck of fifth metacarpal bone, right hand, initial encounter for closed fracture (principal); E11.9 Type 2 diabetes mellitus without complications; E06.3 Autoimmune thyroiditis; Z79.899 Other long term (current) drug therapy; Z79.4 Long term (current) use of insulin; Z79.890 Hormone replacement therapy; W22.09XA Striking against other stationary object, initial encounter
CPT/HCPCS: 26608; 36416; 73120; 75989; 76000; 82962; A4216; C1713; J0131; J0690; J1100; J2250; J2405; J2704; J3010; J7030; J9999

== ENCOUNTER → 2025-02-24 15:09 | Outpatient (BNVA) | payer BC, MEDICAID, SELFPAY | PROVIDERS: PCP Nurse Practitioner Family; Visit Provider Orthopaedic Surgery | DX: Z48.89 Encounter for other specified surgical aftercare (principal) | CPT/HCPCS: 73130 ==

== ENCOUNTER 2025-03-04 00:56 | Emergency (ER) | payer BC, MEDICAID, SELFPAY ==
[2025-03-04 01:04] VITALS: BP 112/71; PULSE 91; RESP 14; TEMP 36.7; O2SAT 100
--- NOTE | 2025-03-04 01:23 | XRR_ITS ---
PROCEDURE INFORMATION: Exam: XR Right Hand Exam date and time: 03/04/2025 1:31 AM Age: 24 years old Clinical indication: Other: Evaluate hardware; Prior surgery; Surgery date: <1 month; Surgery type: 5th metacarpal pinning; Additional info: Status post fifth metacarpal fracture. , X-ray to evaluate hardware placement TECHNIQUE: Imaging protocol: Radiologic exam of the right hand. Views: 3 or more views. COMPARISON: No relevant prior studies available. FINDINGS: Bones/joints: Two K-wires are seen spanning a partially healed subacute 5th metacarpal neck fracture. No significant displacement is seen. Mild apex dorsal angulation. No acute fracture. Soft tissues: Normal. XR/XR hand RT min 3V* [id number] IMPRESSION: Nondisplaced subacute healing 5th metacarpal neck fracture with mild apex dorsal angulation stabilized with K-wires.
--- NOTE | 2025-03-04 02:42 | W.ED.EXTPRO ---
HPI - Extremity Problem General: Chief complaint: Extremity Problem,Nontraumatic Stated complaint: post Surgery R hand Red swollen Time Seen by Provider: 03/04/25 01:24 History of Present Illness: garrett Cole presents to the emergency department with concerns about his hand following recent surgery. The patient underwent hand surgery on February 09, approximately 3 weeks ago, for a broken hand. He reports increased pain and swelling in the surgical site, with concerns about a possible infection. The patient states that the pins from the surgery have become more visible, and he has noticed a sore developing on his hand. He attempted to clean the area with alcohol. The patient describes leakage of a small amount of weird fluid from the site, which appears to be orange or yellow in color. He mentions that the pain has been worsening, and the hand is really swollen. The patient's caregiver notes that he has been complaining more about the hand now than immediately after the surgery. One week ago, the patient had a follow-up appointment where the initial cast was removed and replaced with a splint. He was instructed to return in two weeks for possible pin removal. The patient reports that they only removed the splint tonight due to his increased complaints. He has not been on any antibiotics since the surgery. Related Data Home Medications ?Medication ?Instructions ?Recorded ?Confirmed cholecalciferol (vitamin D3) 50 2,000 unit PO DAILY 01/01/20 02/24/25 mcg (2,000 unit) tablet multivitamin (Daily Multi-Vitamin 1 tab PO DAILY 01/01/20 02/24/25 tablet) insulin aspart U-100 100 unit/mL 100 unit SUBCUT DIRECTED 02/05/25 02/24/25 (3 mL) subcutaneous pen (Novolog FlexPen U-100 Insulin aspart) insulin glargine 100 unit/mL (3 20 unit SUBCUT DIRECTED 02/05/25 02/24/25 mL) subcutaneous pen (Lantus Solostar U-100 Insulin) levothyroxine 112 mcg tablet 112 mcg PO DAILY 02/05/25 02/24/25 Previous Rx's ?Medication ?Instructions ?Recorded blood sugar diagnostic #100 ea 09/14/20 lancets 33 gauge (OneTouch Delica #300 ea 03/21/23 Lancets) pen needle, diabetic 32 gauge x #300 ea 11/21/23 (TechLITE Pen Needle) glucagon 1 mg/0.2 mL subcutaneous 1 mg (0.2 mL) SUBCUT ONCE PRN 12/10/23 auto-injector (Gvoke HypoPen hypoglycemia #0.4 mL 2-Pack) blood sugar diagnostic (OneTouch #400 ea 03/12/24 Ultra Test strips) TKO brace #1 ea 02/03/25 right cockup splint #1 ea 02/24/25 hydrocodone 5 mg-acetaminophen 325 1 - 2 tab PO .Q4-6H PRN pain 7 02/26/25 mg tablet days #40 tabs cephalexin 750 mg capsule 750 mg PO BID 10 days #20 caps 03/04/25 Allergies Allergy/AdvReac Type Severity Reaction Status Date / Time ibuprofen Allergy ALGY-Joint Verified 03/04/25 01:09 Pain PFSH ED PFSH: Medical History Anxiety and depression Lumbar scoliosis Karla's thyroiditis Vitamin D deficiency Surgical History Hx of colonoscopy Hx of endoscopy Family History Denies family history of Anesthesia complication Bleeding disorder Social History Smoking and tobacco/nicotine status: never used tobacco/nicotine Second hand smoke exposure: Yes (at work) Alcohol intake: never Substance/Drug Use: never Caregiver/support person: Yes (mother) Lives independently: No Household members: family Marital status: Single Current occupational status: employed and student Current gender identity: Male Special meseret needs: No Physical Exam Const: COMMON NORMALS: no acute distress, patient oriented x3, healthy appearing, alert and well nourished HENMT: COMMON NORMALS: normocephalic HEAD & SCALP: normocephalic Eye: COMMON NORMALS: EOMs intact bilaterally Neck/C-Spine: COMMON NORMALS: full ROM and supple Resp: COMMON NORMALS: normal respiratory effort, No retractions and clear to auscultation bilaterally AUSCULTATION: clear to auscultation bilaterally Cardio: COMMON NORMALS: regular rate, regular rhythm, No gallops present (Cardio) and No murmurs present (Cardio) RATE: regular rate RHYTHM: regular rhythm GI: COMMON NORMALS: Soft to palpation and non-tender PALPATION: Yes Soft to palpation Extremity: GENERAL: Yes normal exam except as noted RIGHT UPPER EXTREMITY: Yes hand & digits Right hand and digits: Yes inspection (swelling right lateral hand), Yes palpation (tender) and Yes ROM exam (limited, pain with) OTHER: can move all fingers, pain with movement of 4th and 5th digits of left hand, fingers are pink and warm, cap refill < 2 seconds, no erythema Neuro: COMMON NORMALS: patient oriented x3 SENSORIUM/ORIENTATION: Yes alert Skin: COMMON NORMALS: no rashes or lesions noted GENERAL SKIN EXAM: no rashes or lesions noted Course Vital Signs: Vital signs: Vital Signs Temperature 98.1 F 03/04/25 01:04 Pulse Rate 85 03/04/25 02:48 Respiratory Rate 16 03/04/25 02:48 Blood Pressure 108/73 03/04/25 02:48 Pulse Oximetry 94 03/04/25 02:48 MDM - Extremity (Nontraumatic) Medical Decision Making 24-year-old male presents emergency department for concerns related to postop fifth metacarpal neck fracture fixation. On exam the hand does appear slightly swollen without warmth or erythema. Hand x-ray is reassuring for placement of K wires. Because of the concern with infection the patient was started on Keflex. Counseled the patient to contact the orthopedic surgeon tomorrow for further follow-up with pain, swelling, and concerns with displaced wires. Return precautions were discussed and the patient was discharged home. Lab Data Radiology Impressions Hand X-Ray 03/04/25 01:23 IMPRESSION: Nondisplaced subacute healing 5th metacarpal neck fracture with mild apex dorsal angulation stabilized with K-wires. All radiology interpretation(s) finalized by discharge Discharge Plan Discharge Patient Disposition: Home Clinical Impression: Post-op pain Cellulitis Qualifiers: Site of cellulitis: extremity Site of cellulitis of extremity: upper extremity Laterality: right Qualified Code(s): L03.113 - Cellulitis of right upper limb Condition: Stable Prescriptions: New cephalexin 750 mg capsule 750 mg PO BID 10 Days Qty: 20 0RF No Action cholecalciferol (vitamin D3) 2,000 unit tablet 2,000 unit PO DAILY multivitamin [Daily Multi-Vitamin] Tablet 1 tab PO DAILY (DME) blood sugar diagnostic Strip See Rx Instructions .ROUTE .MEDSUPPLY Qty: 100 11RF Rx Instructions: As directed up to 10x daily (DME) right cockup splint See Rx Instructions .Route .MEDSUPPLY Qty: 1 0RF Rx Instructions: As directed (DME) pen needle, diabetic [TechLITE Pen Needle] 32 gauge x 5/32 needle See Rx Instructions .ROUTE .COMPLEX Qty: 300 12RF Dose Instruction: USE 1 BEFORE MEAL(S) AND AT BEDTIME AND NEEDED FOR HYPOGLCEMIA Rx Instructions: USE 1 BEFORE MEAL(S) AND AT BEDTIME AND NEEDED FOR HYPOGLCEMIA (DME) TKO brace See Rx Instructions .Route .MEDSUPPLY Qty: 1 0RF Rx Instructions: As directed (DME) lancets [OneTouch Delica Lancets] 33 gauge misc See Rx Instructions .ROUTE .COMPLEX Qty: 300 0RF Dose Instruction: USE DIRECTED TO CHECK BLOOD SUGAR UP TO 10 TIMES DAILY Rx Instructions: USE DIRECTED TO CHECK BLOOD SUGAR UP TO 10 TIMES DAILY Gvoke HypoPen 2-Pack 1 mg/0.2 mL auto-injector 1 mg SUBCUT ONCE PRN (Reason: hypoglycemia) Qty: 0.4 2RF (DME) OneTouch Ultra Test Strip See Rx Instructions .ROUTE .COMPLEX Qty: 400 5RF Dose Instruction: USE DIRECTED TO CHECK BLOOD SUGAR UP TO 9 TIMES DAILY Rx Instructions: USE DIRECTED TO CHECK BLOOD SUGAR UP TO 9 TIMES DAILY hydrocodone-acetaminophen 5-325 mg tablet 1 - 2 tab PO .Q4-6H PRN (Reason: pain) 7 Days Qty: 40 0RF levothyroxine 112 mcg tablet 112 mcg PO DAILY Rx Instructions: Take 1 tablet by mouth once daily insulin glargine [Lantus Solostar U-100 Insulin] 100 unit/mL (3 mL) insulin pen 20 unit SUBCUT DIRECTED Rx Instructions: INJECT 20 UNITS SUBCUTANEOUSLY TWICE DAILY insulin aspart U-100 [Novolog FlexPen U-100 Insulin] 100 unit/mL (3 mL) insulin pen 100 unit SUBCUT DIRECTED Rx Instructions: USE DIRECTED PER SLIDING SCALE. DO NOT EXCEED DAILY DOSE OF 86 UNITS PER DAY Discharge Orders: Discharge ED (Routine); Ordered 03/04/25 Ordered By: Duke Law Referrals: Mary Hernandez FNP [Primary Care Provider, Family Practice] Discharge Diet: Advance as tolerated Discharge Activity: Limit activity as instructed Patient Instructions: Opioid Safety, Pain Management Activity Restrictions/Additional Instructions: Please follow-up with your orthopedic surgeon tomorrow regarding the pain and concern with displaced wires. Take all antibiotics until gone. Follow-up in the emergency department as needed for worsening symptoms Print Language: Surinamese Coding Level of Care Code ED Warehouse Pricing And Inventory Clerk for Honorio Lyons
[2025-03-04 02:48] VITALS: BP 108/73; PULSE 85; RESP 16; O2SAT 94
== END 2025-03-04 02:50 | disposition home or self-care (01) ==
PROVIDERS: Emergency Provider General Practice; PCP Nurse Practitioner Family
DX: L03.113 Cellulitis of right upper limb (principal); G89.18 Other acute postprocedural pain; Z79.4 Long term (current) use of insulin
CPT/HCPCS: 73130; 99283

== ENCOUNTER → 2025-03-10 14:22 | Outpatient (BNVA) | payer BC, MEDICAID, SELFPAY | PROVIDERS: PCP Nurse Practitioner Family; Visit Provider Orthopaedic Surgery | DX: Z48.89 Encounter for other specified surgical aftercare (principal) | CPT/HCPCS: 73130 ==

== ENCOUNTER → 2025-03-24 14:17 | Outpatient (BNVA) | payer BC, MEDICAID, SELFPAY | PROVIDERS: PCP Nurse Practitioner Family; Visit Provider Orthopaedic Surgery | DX: S62.336A Displaced fracture of neck of fifth metacarpal bone, right hand, initial encounter for closed fracture (principal); X58.XXXA Exposure to other specified factors, initial encounter | CPT/HCPCS: 73130 ==

== ENCOUNTER → 2025-06-30 13:35 | Outpatient (BNVA) | payer BC, MEDICAID, SELFPAY | PROVIDERS: PCP Nurse Practitioner Family; Visit Provider Nurse Practitioner Family | DX: E10.9 Type 1 diabetes mellitus without complications (principal) | CPT/HCPCS: 80053; 80061; 83036; 84439; 84443; 85025 ==